=== PATIENT | female | born 1950 | race Hispanic/Latino ===

== ENCOUNTER 2018-12-20 14:33 | Emergency (ER) | payer BC, MEDICARE ==
[2018-12-20] MEDS ORDERED: ACETAMINOPHEN 325 MG TAB ONE (15:19)
== END 2018-12-20 15:30 | disposition home or self-care (01) ==
LOC: EDH 14:33
DX: S63.8X2A Sprain of other part of left wrist and hand, initial encounter (principal); Z88.2 Allergy status to sulfonamides; W18.39XA Other fall on same level, initial encounter; Y93.89 Activity, other specified; Y92.89 Other specified places as the place of occurrence of the external cause; Y99.8 Other external cause status
CPT/HCPCS: 29125; 73110

== ENCOUNTER 2019-03-09 04:14 | Emergency (ER) | payer MEDICARE ==
[2019-03-09] MEDS ORDERED: MORPHINE SULFATE 4 MG/1ML SYG ONE (04:35)
[2019-03-09 04:44] LABS: APPEARANCE,URINE Clear (CLEAR); BILIRUBIN,URINE Negative (NEGATIVE); COLOR,URINE Yellow (YELLOW); GLUCOSE, URINE (UA) Negative (NEGATIVE); KETONES,URINE Negative (NEGATIVE); LEUKOCYTE ESTERASE ,URINE Moderate (NEGATIVE); NITRATE,URINE Negative (NEGATIVE); OCCULT BLOOD,URINE Moderate (NEGATIVE); PROTEIN,URINE Negative (NEGATIVE)
[2019-03-09 05:04] LABS: BACTERIA,URINE Few /HPF (None Seen); MUCUS,URINE Moderate LPF (None Seen); RBC,URINE None Seen /HPF (0-1); SQUAMOUS EPITHELIAL CELL,UR Moderate /HPF (0-2)
[2019-03-09] MEDS ORDERED: NITROFURANTOIN MONOHYD/M-CRYST 100 MG CAPSULE PO ONE (06:13)
== END 2019-03-09 06:24 | disposition home or self-care (01) ==
LOC: EDH 04:14
DX: N30.90 Cystitis, unspecified without hematuria (principal); Z88.2 Allergy status to sulfonamides
CPT/HCPCS: 74176; 81001; 96374; 99285; J2270

== ENCOUNTER 2019-03-21 12:04 | Emergency (ER) | payer MEDICARE ==
[2019-03-21] MEDS ORDERED: PREDNISONE 20 MG TABLET ONE (12:28)
[2019-03-21] MEDS ORDERED: FAMOTIDINE 20MG TAB 20 MG TAB ONE (12:28)
== END 2019-03-21 13:24 | disposition home or self-care (01) ==
LOC: EDH 12:04
DX: T78.49XA Other allergy, initial encounter (principal); L50.9 Urticaria, unspecified; Z88.2 Allergy status to sulfonamides; X58.XXXA Exposure to other specified factors, initial encounter

== ENCOUNTER → 2019-03-29 | Outpatient (CLI) | payer MEDICARE | END | disposition home or self-care (01) | LOC: RAH 10:49 | PROVIDERS: ATTEND Family Medicine | DX: N63.21 Unspecified lump in the left breast, upper outer quadrant (principal); R59.9 Enlarged lymph nodes, unspecified; R92.2 Inconclusive mammogram | CPT/HCPCS: 76641; 77066 ==

== ENCOUNTER → 2019-04-16 | Outpatient (CLI) | payer MEDICARE ==
[2019-04-16 17:03] LABS: INR 1.02 (0.85-1.15); PARTIAL THROMBOPLASTIN TIME 26.6 SEC (26.3-35.5); PROTHROMBIN TIME 10.7 SEC (9.6-11.6)
== END | disposition home or self-care (01) ==
LOC: LAB 12:00
PROVIDERS: ATTEND Surgery
DX: N63.20 Unspecified lump in the left breast, unspecified quadrant (principal)
CPT/HCPCS: 36415; 85610; 85730

== ENCOUNTER → 2019-04-18 | Outpatient (CLI) | payer MEDICARE ==
--- NOTE | 2019-04-18 09:20 | NUR ---
U/S GD BX LEFT BREAST MASS AND LEFT AXILLA LYMPH NODE PROCEDURE PERFORMED BY DR LIM. PUNCTURE SITE LEFT BREAST 2 O'CLOCK AND LEFT AXILLA AND PATIENT TOLERATED PROCEDURE WELL. SPECIMEN X 10 COLLECTED AND SENT TO LAB. END OF PROCEDURE AT 1000. BIOPSY NEEDLE REMOVED AND DRESSING APPLIED. TISSUE MARKER PLACED TO LEFT BREAST AND LEFT AXILLA. NO BLEEDING NOTED. DISCHARGE INSTRUCTIONS GIVEN TO PATIENT AND VERBALIZED UNDERSTANDING. DISCHARGED AMBULATORY, STABLE, AAO X3 WITH NO C/O PAIN.
== END | disposition home or self-care (01) ==
LOC: RAH 07:57
PROVIDERS: ATTEND Surgery
DX: C50.912 Malignant neoplasm of unspecified site of left female breast (principal); Z17.1 Estrogen receptor negative status [ER-]; Z88.1 Allergy status to other antibiotic agents; Z88.2 Allergy status to sulfonamides
CPT/HCPCS: 19083; 38505; 76942; 88305; A4215 ×6